=== PATIENT | female | born 2000 | race African-American/Black ===

== ENCOUNTER 2023-04-26 16:37 | Emergency (ER) | payer BC, SELFPAY ==
[2023-04-26 17:33] VITALS: BP 114/68; PULSE 89; RESP 14; TEMP 37.2; O2SAT 99; BMI 19.0
[2023-04-26 18:42] LABS: Chloride* 102 mmol/L (96-114)
[2023-04-26 18:43] LABS: Potassium* 4.5 mmol/L (3.6-5.1); Sodium* 139 mmol/L (135-149)
[2023-04-26 18:45] LABS: Anion Gap 7 mEq/L (7-15); Carbon Dioxide* 30 mmol/L (20-32); Creatinine* 0.6 mg/dL (0.5-1.5); Est. Creatinine Clearance* 125.32; Estimated Glomerular Filt Rate 131 ml/min
[2023-04-26 18:46] LABS: Blood Urea Nitrogen* 7 mg/dL (5-24); Calcium* 10.2 mg/dL (8.4-10.6); Glucose* 91 mg/dL (60-115)
[2023-04-26 18:49] LABS: Acetaminophen* < 10.0 ug/mL (10.0-30.0); Ethanol* < 0.01 % (0.01-0.03); Salicylate* < 1.0 mg/dL (1.0-10)
--- NOTE | 2023-04-26 19:04 | ED_ITS ---
HPI - General Adult General Date Seen: 04/26/23 Chief complaint: Anxiety Stated complaint: Mental health Time Seen by Provider: 04/26/23 17:49 Source: patient and family Mode of arrival: ambulatory Limitations: no limitations History of Present Illness HPI narrative: Patient is a 23-year-old here with sister and dad for evaluation of mental health concerns. According to the patient, for a number of weeks she has felt like she has an odor to her. She says she has been to multiple doctors, she thought that it might be GERD or bacterial vaginosis, these have been treated without effect and she says she still has a terrible odor to her. She says it is just emanating from her body in general not from 1 specific location. She says that she has not been going to school because she feels that people are reacting to how she smells. She said when she came to the ER she noted in the waiting room that people started coughing, and she is assumes that is a result of this smell. She says that her family thinks she is ?paranoid, and she does not believe them when they say that they do not smell anything. She thinks that they are just trying not to hurt her feelings. She does acknowledge prior history of depression and anxiety, she is not on any medications. Her family is concerned about possible self-harm as they say she made some comments earlier about thinking about hurting herself. When I asked her about this she does not directly answer the question. She is in school at [employer], lives in [place] with roommates there. Her father says that she had come home and was doing the laundry repeatedly trying to get rid of this smell. She denies that she has other significant OCD behaviors. She is not under the care of anyone for mental health reasons denies prior hospitalizations or medications. Denies substances. Related Data Home Medications Medication Instructions Recorded Confirmed omeprazole 20 mg capsule,delayed 20 mg PO DAILY 04/26/23 04/26/23 release Allergies Allergy/AdvReac Type Severity Reaction Status Date / Time No Known Drug Allergies Allergy Verified 04/26/23 17:33 Review of Systems Status of ROS: Reports: 6 or more systems reviewed and unremarkable except as noted in History and below Exam Narrative: Exam Narrative: Vital signs as noted above. In general, an alert, nontoxic in woman. Well groomed, poor eye contact. Head: Normocephalic, atraumatic. Eyes: Pupils are equal reactive. Extraocular movements are full. Conjunctivae are normal. ENT: Mucous membranes are moist. Throat is normal. Neck: Supple without lymphadenopathy. Heart: Regular rate and rhythm. No murmur or rub. Lungs: Clear bilaterally. No increased work of breathing, crackles or wheezes. Abdomen: Soft and nontender. No organomegaly. Extremities: Well perfused. No edema. No calf tenderness. Pulses intact. Neurologic: Patient is alert and oriented to person and place. Speech is fluent. Face is symmetric. Moves all extremities equally. Affect: Tearful. Skin: Warm and dry. Well perfused. Const: Vital Signs, click to edit/add: Vital Signs - 24 hr 04/26/23 17:33 Temperature 99.0 F Pulse Rate [Right Pulse Oximeter] 89 Respiratory Rate 14 Blood Pressure [Ri ght Upper Arm] 114/68 Pulse Oximetry 99 Oxygen Delivery Me thod Room Air Documenting provider has reviewed patient's vital signs: yes Course Course ED Course: Patient presents with seemingly some delusional thinking, depression and anxiety seemingly secondary to her delusional thoughts. Will have her talk with [facility], obtain some labs, reassess after [facility] assessment. Labs are unremarkable, aspirin Tylenol alcohol levels are negative. Patient did not provide a urine sample however. She did talk with , she was able to contract for safety and denies any suicidal ideation to the [facility] human resources psychologist. [facility] human resources psychologist therefore feels up she can be reasonably discharged home, and I would agree based on that information. She has an appointment made with psychiatry for 3 days from now. Return at any time for acute worsening in the interim. She is going to go home, stay with family. Vital Signs Vital signs: Initial Vital Signs Temperature 99.0 F 04/26/23 17:33 Temperature Source Temporal Artery Scan 04/26/23 17:33 Pulse Rate 89 04/26/23 17:33 Respiratory Rate 14 04/26/23 17:33 Blood Pressure 114/68 04/26/23 17:33 Blood Pressure Mean 83 04/26/23 17:33 Blood Pressure Position Sitting 04/26/23 17:33 Pulse Oximetry 99 04/26/23 17:33 Oxygen Delivery Method Room Air 04/26/23 17:33 Vital Signs Temperature 99.0 F 04/26/23 17:33 Pulse Rate 89 04/26/23 17:33 Respiratory Rate 14 04/26/23 17:33 Blood Pressure 114/68 04/26/23 17:33 Pulse Oximetry 99 04/26/23 17:33 Oxygen Delivery Method Room Air 04/26/23 17:33 Temperature 99.0 F 04/26/23 17:33 Pulse Rate 89 04/26/23 17:33 Respiratory Rate 14 04/26/23 17:33 Blood Pressure 114/68 04/26/23 17:33 Pulse Oximetry 99 04/26/23 17:33 Oxygen Delivery Method Room Air 04/26/23 17:33 Medical Decision Making Lab Data Labs: Lab Results 04/26/23 Range/Units 18:22 Sodium 139 (135-149) mmol/L Potassium 4.5 (3.6-5.1) mmol/L Chloride 102 (96-114) mmol/L Carbon Dioxide 30 (20-32) mmol/L Anion Gap 7 (7-15) mEq/L BUN 7 (5-24) mg/dL Creatinine 0.6 (0.5-1.5) mg/dL Estimated Creat Clear 125.32 Estimated GFR 131 ml/min Glucose 91 (60-115) mg/dL Calcium 10.2 (8.4-10.6) mg/dL Salicylates < 1.0 L (1.0-10) mg/dL Acetaminophen < 10.0 L (10.0-30.0) ug/mL Ethyl Alcohol < 0.01 L (0.01-0.03) % Discharge Plan Discharge Clinical Impression: Delusional thoughts Patient Disposition: Home w/ Parent or Adult Condition: Stable Additional Instructions: Outpatient follow-up this week with Psychiatry as planned. Return at any time for worsening. Prescriptions: No Action omeprazole 20 mg capsule,delayed release(DR/EC) 20 mg PO DAILY Follow Up/Referrals: Avril Trent DO [Primary Care Provider] - Stand Alone Forms: [email or web address] Info Instructions
--- NOTE | 2023-04-26 20:08 | ED.NURSE ---
dec assessment done at 1953
[2023-04-26 21:27] VITALS: PULSE 84; RESP 16
== END 2023-04-26 21:28 | disposition home or self-care (01) ==
PROVIDERS: Emergency Provider Emergency Medicine; PCP Family Medicine
DX: F22 Delusional disorders (principal)
CPT/HCPCS: 36415; 80048; 80143; 80179; 80306; 81001; 82077; 99283; 99284